=== PATIENT | female | born 2000 | race Hispanic/Latino ===

== ENCOUNTER 2022-01-30 21:17 | Emergency (ER) | payer OTHER, SELFPAY ==
[2022-01-30 21:40] VITALS: BP 133/86; PULSE 96; RESP 15; TEMP 36.8; O2SAT 100
--- NOTE | 2022-01-30 22:38 | ED.WOUNDLAC ---
HPI - Wound/Laceration General Chief Complaint: Wound/Laceration Stated Complaint: Head lac Time Seen by Provider: 01/30/22 22:30 Source: patient History of Present Illness HPI narrative: Patient presents with a head injury she was at the gym she stood up and struck her head on a handle. She had a small amount of blood so she came to the ER for evaluation. She denies any loss of consciousness changes in vision, nausea vomiting or diarrhea. She denies any blood thinners. Patient reports an ache to the top of her head that it is constant, worse with palpation, no radiation. Related Data Allergies Allergy/AdvReac Type Severity Reaction Status Date / Time No Known Allergies Allergy Verified 01/30/22 21:58 Review of Systems Review of Systems: CONSTITUTIONAL: Denies fever, chills, or sweats. EYES: Denies visual changes, redness, or discharge. ENT: Denies rhinorrhea, congestion, sore throat, or otalgia. CARDIOVASCULAR: Denies chest pain, palpitations, or edema. RESPIRATORY: Denies cough or dyspnea. GASTROINTESTINAL: Denies abdominal pain, nausea, vomiting, or diarrhea. GENITOURINARY: Denies dysuria or hematuria. SKIN: Denies rash or itching. MUSCULOSKELETAL: Denies back pain, joint pain, or myalgia. NEUROLOGIC: Denies numbness, dizziness, or weakness. PSYCHIATRIC: Denies anxiety or depression. All systems reviewed & are unremarkable except as noted in HPI and below PMFSH Past Medical History Medical History (Updated 01/31/22 @ 00:00 by Background Daemon) Patient denies significant medical history Exam Narrative: GENERAL: Well-appearing, well-nourished, and in no acute distress. HEAD: Normocephalic, small abrasion noted to the top of the head with dried blood mild tenderness EYES: PERRLA and EOMI. ENT: Nares clear, no rhinorrhea or epistaxis. Mucous membranes moist. NECK: Supple. No masses. No JVD EXTREMITIES: Normal range of motion. No edema. SKIN: Warm, dry, no rash. NEURO: No focal deficits. Alert and oriented x3. PSYCH: Normal mood and affect. Course Vital Signs Vital signs: Vital Signs Temperature 36.8 C 01/30/22 21:40 Pulse Rate 96 01/30/22 21:40 Respiratory Rate 15 01/30/22 21:40 Blood Pressure 133/86 01/30/22 21:40 Pulse Oximetry 100 01/30/22 21:40 Temperature 36.8 C 01/30/22 21:40 Pulse Rate 84 01/30/22 23:07 Respiratory Rate 15 01/30/22 23:07 Blood Pressure 126/87 01/30/22 23:07 Pulse Oximetry 99 01/30/22 23:07 MDM - Wound/Laceration MDM Narrative Medical decision making narrative: H&P as above, vss, pt looks clinically well, exam small abrasion to the top of the head, labs/img considered, symptomatic relief available as needed, on reevaluation pt continues to looks clinically well. Suspect superficial abrasion, dns intracranial hemorrhage, fracture, major neurovascular compromise. plan to tx/monitor as op w/ pcm f/u findings/plan discussed with pt, pt agree/comfortable with plan, return precautions given Discharge Plan Discharge Clinical Impression: Head injury, Abrasion Patient Disposition: Home, Self-Care Condition: Improved Instructions: Antibiotic Form, Head Injury (ED) Additional Instructions: Please return if your symptoms worsen or fail to improve. If you develop a fever, can not eat/drink anything or if you have any other concerns. Follow-up/Referrals: PHYSICIAN NOT ON STAFF,NONSTAFF [Primary Care Provider] - Stand Alone Forms: Work/School Release IP Time of Disposition: 22:41
[2022-01-30 23:07] VITALS: BP 126/87; PULSE 84; RESP 15; O2SAT 99
== END 2022-01-30 23:10 | disposition home or self-care (01) ==
PROVIDERS: Emergency Provider Emergency Medicine
DX: S00.01XA Abrasion of scalp, initial encounter (principal); W22.8XXA Striking against or struck by other objects, initial encounter
CPT/HCPCS: 99282

== ENCOUNTER 2024-02-04 05:43 | Day surgery (SDC) | payer MEDICAID, SELFPAY ==
[2024-02-04] VITALS (13 sets, daily range): BP systolic 107–143; BP diastolic 57–93; PULSE 60–97; RESP 12–18; TEMP 36.1–36.9; O2SAT 99–100
--- NOTE | ~2024-02-04 | CT_ITS ---
CT of the Abdomen and Pelvis: Indication: Abdominal pain Technique: 2.5 mm axial scans were obtained through the abdomen and pelvis following intravenous adm inistration of 100 cc of Omnipaque 350. Dose reduction technique was used on this scan by utilizing a utomated exposure control and iterative reconstruction technique. The dose-length product (DLP) was 2 18.72 mGy-cm. Findings: Scans through the lung bases are unremarkable. There is periportal edema, nonspecific. The liver, spleen, pancreas, gallbladder, adrenals and kidney s are otherwise within normal limits. No evidence of aortic aneurysm. No lymphadenopathy. No bowel obstruction or bowel wall thickening. Appendix dilated to 10 mm, but no significant inflamma tory change seen.. Images through the pelvis were performed. Urinary bladder unremarkable. No pelvic mass seen. No ascit es. Impression: Dilated appendix without inflammatory change. Correlate for early acute appendicitis. Nonspecific periportal edema. Reviewed, dictated and finalized at [facility]. Impression: Dilated appendix without inflammatory change. Correlate for early acute appendi citis. Nonspecific periportal edema.
[2024-02-04 06:16] LABS: Basophils Percent Auto 0.2 % (0.2-1.2); Eosinophils Absolute Auto 0.1 K/mm3 (0-0.3); Eosinophils Percent Auto 0.4 % (0-4.4); Hematocrit 37.8 % (37.0-47.0); Hemoglobin 12.3 g/dL (12.0-15.0); Immature Granulocyte Absolute 0.09 K/mm3 (0.00-0.031); Immature Granulocyte Percent A 0.5 % (0-0.5); Lymphocytes Absolute Auto 1.62 K/mm3 (0.9-3.2); Lymphocytes Percent Auto 9.7 % (18.3-44.2); Mean Corpuscular HGB Conc 32.5 g/dl (32-36); Mean Corpuscular Hemoglobin 29.6 pg (26-34); Mean Corpuscular Volume 91.1 fl (80-100); Mean Platelet Volume 9.6 fl (7.4-10.4); Monocytes Absolute Auto 0.9 K/mm3 (0.1-0.6); Monocytes Percent Auto 5.4 % (2.6-8.5); Neutrophils Absolute Auto 13.9 K/mm3 (1.3-6.7); Neutrophils Percent Auto 83.8 % (45.5-73.1); Platelet Count Result 245 k/mm3 (150-375); Red Blood Count 4.15 M/mm3 (4.2-5.4); Red Cell Distribution Width 15.3 % (11.5-14.5); White Blood Count 16.6 K/mm3 (4.5-10.0)
[2024-02-04 06:27] LABS: Alanine Aminotransferase 13 U/L (6-35); Albumin Level 4.5 g/dL (3.5-5.1); Alkaline Phosphatase 101 U/L (38-126); Anion Gap 8 mmol/L (8-16); Aspartate Amino Transferase 25 U/L (14-36); Bilirubin,Total 0.8 mg/dL (0.2-1.3); Blood Urea Nitrogen 15 mg/dL (7-17); Calcium 9.1 mg/dL (8.4-10.2); Carbon Dioxide 27 mmol/L (22-30); Chloride 104 mmol/L (98-107); Estimated CRCL calculation 130 ml/min; Estimated Glomerular Filt Rate > 60; Glucose 135 mg/dL (65-110); Lipase 53 U/L (23-300); Potassium 3.4 mmol/L (3.4-5.0); Sodium 139 mmol/L (137-145)
--- NOTE | 2024-02-04 06:27 | ED.GENADULT ---
HPI - General Adult General Chief complaint: Nausea/Vomiting/Diarrhea <Ruddy Victoria MD - Last Filed: 02/04/24 06:50> Stated complaint: abdominal pain, vomiting <Ruddy Victoria MD - Last Filed: 02/04/24 06:50> Time Seen by Provider: 02/04/24 06:22 <Ruddy Victoria MD - Last Filed: 02/04/24 06:50> History of Present Illness HPI narrative: Patient 23-year-old female who presents emergency department with chief complaint of nausea vomiting and abdominal pain. Patient reports around 330 this morning she started having pain in the epigastrium periumbilical area. The patient reports a multiple bouts of vomiting reports no diarrhea reports that she has had no prior abdominal surgeries. <Ruddy Victoria MD - Last Filed: 02/04/24 06:50> Related Data Allergies/adverse reactions: Allergies Allergy/AdvReac Type Severity Reaction Status Date / Time No Known Allergies Allergy Verified 01/30/22 21:58 <Ruddy Victoria MD - Last Filed: 02/04/24 06:50> Review of Systems Review of Systems: A 10 system review of systems was completed on the patient and is negative except for what is stated in the HPI. Nursing and ancillary documentation was reviewed. <Ruddy Victoria MD - Last Filed: 02/04/24 06:50> PMFSH Past Medical History Medical History: Medical History (Updated 02/04/24 @ 10:18 by Rodolfo Hughes DO) Patient denies significant medical history <Ruddy Victoria MD - Last Filed: 02/04/24 06:50> Surgical History Surgical History: Surgical History (Updated 02/04/24 @ 10:16 by Rodolfo Hughes DO) No pertinent past surgical history <Ruddy Victoria MD - Last Filed: 02/04/24 06:50> Family History Family History: Family History (Updated 02/04/24 @ 10:17 by Rodolfo Hughes DO) Mother Appendicitis Gallbladder disease <Ruddy Victoria MD - Last Filed: 02/04/24 06:50> Exam Narrative: GENERAL: Well-appearing, well-nourished, and in moderate acute pain distress. HEAD: Normocephalic, atraumatic. EYES: PERRLA and EOMI. ENT: Nares clear, no rhinorrhea or epistaxis. Mucous membranes moist. NECK: Supple. CHEST: Clear to auscultation. No respiratory distress. HEART: Regular rate and rhythm. No murmur heard. Normal peripheral pulses. ABDOMEN: Soft, diffusely tender to palpation, nondistended, normal active bowel sounds. EXTREMITIES: Normal range of motion. No edema. SKIN: Warm, dry, no rash. NEURO: No focal deficits. Alert and oriented x3. PSYCH: Normal mood and affect. <Ruddy Victoria MD - Last Filed: 02/04/24 06:50> Course Reevaluation(s) Reevaluation #1: At time of sign out CT was pending. CT was concerning for acute appendicitis. Patient does have nausea vomiting leukocytosis and reproducible right lower quadrant pain. Case was discussed with surgery. Plan is to have surgical intervention. Patient was started on antibiotics will still emergency department. Patient was updated the results of the imaging and plan for surgical treatment <Edwin Serrato MD - Last Filed: 02/04/24 10:41> Vital Signs Vital signs: Vital Signs Temperature 97.4 F L 02/04/24 06:04 Pulse Rate 60 02/04/24 06:04 Respiratory Rate 14 02/04/24 06:04 Blood Pressure 125/68 02/04/24 06:04 Pulse Oximetry 100 02/04/24 06:04 Temperature 98 F 02/04/24 09:56 Pulse Rate 60 02/04/24 09:56 Respiratory Rate 18 02/04/24 09:56 Blood Pressure 126/82 02/04/24 09:56 Pulse Oximetry 100 02/04/24 09:56 <Ruddy Victoria MD - Last Filed: 02/04/24 06:50> Vital Signs Temperature 97.4 F L 02/04/24 06:04 Pulse Rate 60 02/04/24 06:04 Respiratory Rate 14 02/04/24 06:04 Blood Pressure 125/68 02/04/24 06:04 Pulse Oximetry 100 02/04/24 06:04 Temperature 98 F 02/04/24 09:56 Pulse Rate 60 02/04/24 09:56 Respirato
[2024-02-04] MEDS: ONDANSETRON INJ 4 MG/2 ML VIAL IV PUSH (06:34)
[2024-02-04] MEDS: MORPHINE SULFATE (*CRX) 4 MG/ML INJ IV PUSH (06:34)
[2024-02-04] MEDS: SODIUM CHLORIDE 0.9% IV 1,000 ML 999 ML IV CONT (06:35)
[2024-02-04 08:05] LABS: Appearance Urine Cloudy (Clear); Bacteria Urine 1+ /hpf; Bilirubin Urine Negative (Negative); Blood Urine Negative (Negative); Color Urine Yellow (Yellow); Glucose Urine UA Negative (Negative); Ketones Urine 2+ mg/dL (Negative); Leukocyte Esterase Ur Negative LEU/UL (Negative); Nitrate Urine Negative (Negative); Non Pathogenic Casts 0-2; Protein Urine Negative (Negative); RBC Urine 0-2 /hpf (0-2); Squamous Epithelial Cell Urine Few /hpf (Few); Urobilinogen Urine 0.2 mg/dL (<2.0); WBC Urine 0-5 /hpf (0-3)
[2024-02-04 08:07] LABS: Add Urine Microscopic? YES; Specific Grav Ur 1.048 (1.001-1.035)
--- NOTE | 2024-02-04 09:06 | ECG_ITS ---
Measurements Intervals [facility] Rate: 48 P: 63 NH: 135 QRS: 99 QRSD: 98 T: 66 QT: 448 QTc: 404 Interpretive Statements SINUS BRADYCARDIA RIGHT AXIS DEVIATION MINIMAL Q WAVES- INFERIOR LEADS ABNORMAL ECG NO PREVIOUS ECG AVAILABLE FOR COMPARISON Electronically Signed On 02-04-2024 9:26:35 CDT by Sabino Rosales D.O.
[2024-02-04] MEDS: HYDROmorphone HCL INJ (*CRX) 1 MG/ML SYR 0.5 MG IV PUSH (10:04)
[2024-02-04] MEDS: SODIUM CHLORIDE 0.9% IV 1,000 ML 125 ML IV CONT (10:05)
--- NOTE | 2024-02-04 10:14 | PM.IMHP ---
H&P: HPI History of Present Illness Date/Time: 02/04/24 10:14 Chief Complaint: Right lower quadrant pain Narrative: This is a 23-year-old woman who presented to the emergency department this morning with right lower quadrant pain that started last night. She states that after eating dinner she was having some vague abdominal cramping. She doing moved up around 3:00 a.m. with worsening pain, nausea, and vomiting. The pain is now localized to the right lower quadrant. She was feeling chills but no fevers. She has never had any symptoms like this past. Review of Systems Review of Systems: All systems reviewed & are unremarkable except as noted in HPI and below Constitutional: Constitutional: Reports chills Eyes: Eyes: Denies change in vision ENT: Denies hearing loss, Denies neck pain and Denies sore throat Cardiovascular: Cardiovascular: Denies chest pain and Denies dyspnea Respiratory: Respiratory: Denies cough, Denies dyspnea and Denies wheezing Gastrointestinal: Gastrointestinal: Reports as per HPI Genitourinary: Genitourinary: Denies hematuria and Denies dysuria Musculoskeletal: Musculoskeletal: Denies arthralgias, Denies joint swelling and Denies neck pain Allergic/Immunologic: Allergic/Immunologic: Denies wheezing PMFSH Past Medical History Medical History Patient denies significant medical history Surgical History Surgical History No pertinent past surgical history Family History Family History Mother Appendicitis Gallbladder disease Social History Social History (Updated 02/04/24 @ 12:00 by Rodolfo Hughes DO) Smoking status: Never smoker Alcohol intake: current Alcohol use details: Socially on weekends Substance use: current Substance use type: marijuana Meds Home Medications and Allergies Allergies Allergy/AdvReac Type Severity Reaction Status Date / Time No Known Allergies Allergy Verified 01/30/22 21:58 Vital Signs Vital Signs - 24 hr 02/04/24 06:04 02/04/24 08:22 02/04/24 09:56 Temperature 36.3 C L 36.8 C 36.6 C Pulse Rate 60 60 60 Respiratory Rate 14 18 18 Blood Pressure 125/68 143/93 H 126/82 Pulse Oximetry 100 100 100 Exam Const: General: alert; No acute distress Orientation/consciousness: patient oriented x3 Limitations: no limitations HENMT: Head: normocephalic and atraumatic Ears: hearing grossly normal bilaterally Face/Nose/Sinus: Normal external nose present and Normal nares present Mouth: Yes Normal oral and palatal mucosa present and Yes moist mucous membranes Eyes: General: appearance normal, both eyes and all related structures Conjunctivae: conjunctivae normal Sclera: sclerae normal Pupils: Equal, round and reactive pupils present EOM: EOMs intact bilaterally Neck: Neck: normal visual inspection, full ROM, no lymphadenopathy, supple and no JVD Lymphatic: no lymphadenopathy noted Chest: Chest palpation & inspection: normal inspection of the chest Resp: Effort & Inspection: normal respiratory effort and able to speak in complete sentences Auscultation: clear to auscultation bilaterally Percussion: percussion normal Cardio: Jugular venous distension: no JVD Rate: regular rate Rhythm: regular rhythm Heart sounds: S1 normal heart sound present and S2 normal heart sound present Peripheral pulses: Peripheral pulses 2+ throughout GI: Inspection: normal to inspection GI Palp: Yes Soft to palpation, Yes Tenderness to palpation present (GI) (Right lower quadrant), No Guarding due to palpation present (GI), No Hernia present and No Rebound tenderness present Percussion: Yes normal to percussion Auscultation: normal bowel sounds : General: Yes no CVA tenderness Back/Spine/Pelvis: Back: no CVA tenderness Skin: General skin exam: normal color and dry skin Neuro: Gene
[2024-02-04] MEDS: metroNIDAZOLE 500 MG/ISO 100ML 500 MG/100 ML BAG 100 MG IVPB (10:44)
--- NOTE | 2024-02-04 10:47 | WPDHPUPDATE1 ---
History and Physical Update Update Date/Time: 02/04/24 10:47 History and Physical has been reviewed, including an updated exam of the patient. There are NO changes in the patient's condition. Risks, benefits, and alternatives have been discussed and questions answered. Patient agrees to proceed with procedure.
[2024-02-04] MEDS: LACTATED RINGERS 1,000 ML 30 ML IV CONT ×2 (11:00→13:19)
--- NOTE | 2024-02-04 11:39 | WPDANESEPPF ---
Anes - Initial Pre Proc Eval Procedure: Operation Date: 02/04/24 12:30 Proposed Procedures p Laparoscopic Appendectomy - Rodolfo Hughes DO Date/Time: 02/04/24 11:39 Surgeon: Rodolfo Hughes DO Pre Op Diagnosis: acute appendicitis Patient Data Age: 23 Gender: F Height: 1.65 m Weight: 55.45 kg Last Vital Signs Temp 36.9 C 02/04/24 11:19 Pulse 69 02/04/24 11:19 Resp 16 02/04/24 11:19 BP 107/57 L 02/04/24 11:19 Pulse Ox 100 02/04/24 11:19 O2 Del Method Room Air 02/04/24 11:19 Allergies Allergy/AdvReac Type Severity Reaction Status Date / Time No Known Allergies Allergy Verified 01/30/22 21:58 Laboratory Tests 02/04/24 02/04/24 02/04/24 06:08 07:47 09:35 WBC 16.6 H K/mm3 (4.5-10.0) RBC 4.15 L M/mm3 (4.2-5.4) Hgb 12.3 g/dL (12.0-15.0) Hct 37.8 % (37.0-47.0) MCV 91.1 fl (80-100) MCH 29.6 pg (26-34) MCHC 32.5 g/dl (32-36) RDW 15.3 H % (11.5-14.5) Plt Count 245 k/mm3 (150-375) MPV 9.6 fl (7.4-10.4) Immature Gran % (Auto) 0.5 % (0-0.5) Neut % (Auto) 83.8 H % (45.5-73.1) Lymph % (Auto) 9.7 L % (18.3-44.2) Mccreary % (Auto) 5.4 % (2.6-8.5) Eos % (Auto) 0.4 % (0-4.4) Baso % (Auto) 0.2 % (0.2-1.2) Lymph # (Auto) 1.62 K/mm3 (0.9-3.2) Mccreary # (Auto) 0.9 H K/mm3 (0.1-0.6) Eos # (Auto) 0.1 K/mm3 (0-0.3) Baso # (Auto) 0.0 K/mm3 (0.0-0.1) Abs Immat Gran (auto) 0.09 H K/mm3 (0.00-0.031) Absolute Neuts (auto) 13.9 H K/mm3 (1.3-6.7) Absolute Nucleated RBC 0.000 K/mm3 (0.0-0.012) Nucleated RBC % 0.0 % (0.0-0.2) Sodium 139 mmol/L (137-145) Potassium 3.4 mmol/L (3.4-5.0) Chloride 104 mmol/L (98-107) Carbon Dioxide 27 mmol/L (22-30) Anion Gap 8 mmol/L (8-16) BUN 15 mg/dL (7-17) Creatinine 0.50 L mg/dL (0.7-1.0) Estim Creat Clear Calc 130 ml/min Estimated GFR > 60 (59 - ) Glucose 135 H mg/dL (65-110) Calcium 9.1 mg/dL (8.4-10.2) Total Bilirubin 0.8 mg/dL (0.2-1.3) AST 25 U/L (14-36) ALT 13 U/L (6-35) Alkaline Phosphatase 101 U/L (38-126) Total Protein 7.0 g/dL (6.3-8.2) Albumin 4.5 g/dL (3.5-5.1) Lipase 53 U/L (23-300) Urine Color Yellow (Yellow) Urine Appearance Cloudy H (Clear) Urine pH 8.0 (5.0-9.0) Ur Specific Brewster 1.048 H (1.001-1.035) Urine Protein Negative mg/dL (Negative) Urine Glucose (UA) Negative mg/dL (Negative) Urine Ketones 2+ H mg/dL (Negative) Ur Blood (Man) Negative (Negative) Urine Nitrate Negative (Negative) Urine Bilirubin Negative (Negative) Urine Urobilinogen 0.2 mg/dL (<2.0) Leukocyte Esterase Rfl Negative CAN/UL (Negative) Urine RBC 0-2 /hpf (0-2) Urine WBC 0-5 /hpf (0-3) Ur Squamous Epith Cells Few /hpf (Few) Urine Bacteria 1+ H /hpf Urine Casts 0-2 Blood Type A Positive Antibody Screen Negative Patient hx anesthesia problems: none Family hx anesthesia problems: none Results Review: All pre-operative results and documents have been reviewed as part of the pre-operative evaluation. [facility] Past Medical History Medical History Patient denies significant medical history Surgical History Surgical History No pertinent past surgical history Family History Family History Mother Molly
[2024-02-04] MEDS: BUPIVACAINE/EPINEPHRINE 0.5% 50 ML VIAL 30 ML INFILTRATE (12:44)
--- NOTE | 2024-02-04 13:09 | W.PM.PROC2 ---
Procedure Note - Detailed Date of Procedure 02/04/24 Pre-op Diagnosis acute appendicitis Post-op Diagnosis Same Procedure Performed Laparoscopic appendectomy Surgeon Rodolfo Hughes, DO Anesthesia General and Local (0.5% bupivacaine with epinephrine) Indications This is a 23-year-old woman who presented to the emergency department with lower abdominal pain that started yesterday. She was having some vague periumbilical pain at 1st that eventually localized to the right lower quadrant. She was also experiencing chills, nausea, and vomiting. She was [place] [id number] showed evidence of acute appendicitis. She was started on broad-spectrum IV antibiotics and discussions were made with the patient about treatment options. Decision was made to proceed with laparoscopic appendectomy, possible open. Findings Laparoscopic appendectomy was performed. The appendix was identified and appeared dilated and indurated. The base of the appendix appeared fairly dilated and firm. There was no evidence of perforation or abscess. I came across the appendix at the distal cecum to ensure that the entire dilated portion was completely excised. No other intra-abdominal abnormalities were noted. The appendix was removed and sent to the lab for pathology. Description of Procedure Procedure as well as risks, benefits, and alternatives were explained to the patient. The patient agreed to proceed. Written consent was obtained and placed in chart prior to procedure. The patient was brought back to surgical suite. She was placed supine on operating table. Time-out was done to confirm the patient and procedure. The patient was then intubated by the Anesthesia Department. Her abdomen was prepped and draped in sterile fashion using chlorhexidine prep. A 12 mm incision was made at the inferior portion of the umbilicus. Blunt dissection was carried out down to the linea alba. The linea alba was then incised using a 15 blade scalpel. Then bluntly entered into the peritoneal cavity. A 12 mm trocar was then inserted, and carbon dioxide insufflation was used to create a pneumoperitoneum. The camera was inserted and the abdomen was inspected. No immediate abnormalities were identified. The patient was then placed in slight Trendelenburg position and rotated to the left. A 5 mm incision was made in the suprapubic region in midline and a 5 mm trocar was inserted under direct visualization. A 5 mm incision was made in the left lower quadrant and a 5 mm trocar was inserted under direct visualization. The right lower quadrant was carefully inspected. The cecum was identified and then this was traced back to the appendix. The appendix was identified and grasped at the mesoappendix and lifted anteriorly. Careful blunt dissection was carried out at the base of the appendix through the mesoappendix using a [place] grasper. An Endo-RONNIE 45 mm blue load stapler was then advanced across the base of the appendix and clamped and fired. A white reload was then clamped across the mesoappendix and fired. This freed up our appendix completely. It was then placed in an EndoCatch bag and removed through the umbilical port. The staple lines were then inspected. Hemostasis appeared adequate and the staple lines appeared secure. The area was then irrigated with sterile saline. The pelvis was then carefully inspected and irrigated with sterile saline as well and the remainder of the abdomen was carefully inspected. The patient was then flattened out in bed. One final inspection was made around the abdominal cavity and no other abnormalities were seen. The ports were then removed under direct visualization. The camera was removed and the pneumoperitoneum was released. The fascia of the umbilical incision was reapproximated using an 0 Vicryl [id number] suture. 0.5% bupivacaine with epinephrine was infiltrated locally around each of the incisions. The
[2024-02-04] MEDS: fentaNYL CITRATE INJ (*CRX) 100 MCG/2 ML VIAL 25 MCG IV PUSH (14:47)
== END 2024-02-04 15:50 | disposition home or self-care (01) ==
LOC: ANHED 09:05 → ANH3MEDSUR 09:58 → ANHED 14:20
PROVIDERS: Surgery; Visit Provider Emergency Medicine
PROC: 0DTJ4ZZ Resection of Appendix, Percutaneous Endoscopic Approach (ICD-10-PCS; CPT 44970; principal; 2024-02-04 12:30)
DX: K35.30 Acute appendicitis with localized peritonitis, without perforation or gangrene (principal); R60.9 Edema, unspecified; F12.90 Cannabis use, unspecified, uncomplicated
CPT/HCPCS: 44970; 36415; 74177; 80053; 81025; 83690; 85025; 86850; 86900; 86901; 87040; 88304; 93005; 96361; 96374; 96375; 99285; J0330; J0696; J1100; J1170; J1200; J1596; J1836; J2250; J2270; J2405; J2704; J2710; J3010; J7030; J7120; Q9967